=== PATIENT | female | born 1955 | race Caucasian/White ===

== ENCOUNTER → 2025-06-04 | Outpatient (CLI) | payer OTHER, SELFPAY ==
--- NOTE | 2025-06-04 12:00 | XR_ITS ---
Examination: Bone densitometry Date and time of exam:June 04, 2025 1214 hours INDICATIONS: 69-year-old female postmenopausal Technique: Lumbar spine and hip total bone mineralization values of an calculated. Peak reference and age match control results have been displayed. Findings: Lumbar spine total bone mineralization is1.003 gm/cm2. This is 0.4 standard deviations below peak reference. This is 1.7 standard deviations above age-matched controls. Hip total bone mineralization is 0.839 gm/cm2 This is 0.8 standard deviations below peak reference. This is 0.6 standard deviations above age-matched controls Impression: There is normal mineralization based on lumbar spine measurements. There is osteopenia based on hip measurements
== END | disposition home or self-care (01) ==
PROVIDERS: PCP Internal Medicine
DX: M85.88 Other specified disorders of bone density and structure, other site (principal)
CPT/HCPCS: 77080

== ENCOUNTER → 2025-06-14 | Outpatient (CLI) | payer OTHER, SELFPAY ==
--- NOTE | 2025-06-14 13:00 | XR_ITS ---
Examination: Screening digital mammography, bilateral Computer aided detection 3-D breast Tomosynthesis, bilateral Date and time of exam: June 14, 2025 1253 hours Compared to mammograms dating to September 30, 2022 Indication: Screening Technique: Nonmagnified MLO, CC views of the breasts to been obtained, reconstructed from 3-D Tomosynthesis images. R2 computer aided detection program utilized for evaluation of suspicious masses and/or abnormal calcifications. 3-D Tomosynthesis images obtained. Findings: Scattered areas of bilateral granular density. 20 mm focal asymmetry outer left breast posterior depth, 8.4 cm from the nipple Impression: BI-RADS Category 0: Incomplete: Need additional imaging evaluation 20 mm focal asymmetry outer left breast posterior depth, recommend follow-up spot tomographic views upper outer quadrant left breast, left breast sonography to complete the workup.
== END | disposition home or self-care (01) ==
PROVIDERS: PCP Internal Medicine
DX: Z12.31 Encounter for screening mammogram for malignant neoplasm of breast (principal); N64.89 Other specified disorders of breast
CPT/HCPCS: 77063; 77067